=== PATIENT | male | born 1930 | race Caucasian/White ===

== ENCOUNTER 2021-06-24 10:56 | Inpatient (IN) | payer MEDICARE, OTHER ==
[2021-06-24] MEDS ORDERED: Azithromycin 500 MG VIAL ONE (11:38)
[2021-06-24] MEDS ORDERED: cefTRIAXone\\ROCEPHIN 2 GM VIAL ONE (11:38)
[2021-06-24 12:07] LABS: #Monocytes 0.8 10x3/uL (0.0-1.1); #Neutrophils 11.7 10x3/uL (1.5-8.4); %Basophils 0.2 % (0.0-2.0); %Eosinophils 0.2 % (0.0-6.0); %Lymphocytes 8.1 % (18.0-47.0); %Monocytes 5.5 % (0.0-10.0); %Neutrophils 85.1 % (40.0-75.0); Hemoglobin 12.1 g/dL (13.5-17.5); Mean Corpuscular HGB CONC 32.9 g/dL (32.0-36.0); Mean Corpuscular Hemoglobin 33.5 pg (27.0-33.0); Mean Corpuscular Volume 101.9 fl (81.2-95.1); Mean Platelet Volume 8.5 fl (7.4-10.4); Platelet Count 151 10x3/uL (150-450); RBC Distribution Width 13.6 % (11.5-14.5); Red Blood Cell (RBC) Count 3.61 10x6/uL (4.32-5.72); White Blood Cell (WBC) Count 13.7 10x3/uL (3.5-10.5)
[2021-06-24 12:17] LABS: ALT (SGPT) 44 U/L (8-55); AST (SGOT) 30 U/L (5-34); Albumin 3.8 g/dL (3.4-4.8); Alkaline Phosphatase 62 U/L (40-110); Anion Gap 14 mmol/L (10-20); BUN (Urea Nitrogen) 33 mg/dL (8.4-25.7); Bilirubin, Total 0.7 mg/dL (0.2-1.2); Calc. Creatinine Clearance 0 mL/min (70-130); Calcium 9.7 mg/dL (7.8-10.44); Carbon Dioxide 24 mmol/L (23-31); Chloride 104 mmol/L (98-107); Globulin 3.1 g/dL (2.4-3.5); Glucose 185 mg/dL (83-110); Potassium 3.8 mmol/L (3.5-5.1); Protein, Total 6.9 g/dL (5.8-8.1); Sodium 138 mmol/L (136-145)
[2021-06-24 13:44] LABS: SARS-CoV-2 NAA Rapid Test DETECTED (NotDetected)
[2021-06-24 15:58] LABS: Bilirubin Neg (Negative); Blood, Urine 25 (Negative); Clarity Clear (Clear); Glucose, Urine (Dipstick) Normal (Negative); Ketone, Urine Negative (Negative); Leukocyte Negative (Negative); Nitrite Negative (Negative); Protein, Urine (Dipstick) 30 mg/dl (Neg-Trace); Urobilinogen Normal mg/dL (Less than 2)
[2021-06-24 16:24] LABS: RBC/HPF 0-3 HPF (0-3)
[2021-06-24 16:25] LABS: Bacteria/HPF 2+ HPF (None Seen); Mucous/LPF 1+ LPF (<2+); WBC/HPF 0-3 HPF (0-3)
[2021-06-24] MEDS ORDERED: Ondansetron ODT 4 MG TAB PO PRN (16:43)
[2021-06-24] MEDS ORDERED: Acetaminophen 650 MG Suppository PR PRN (16:43)
[2021-06-24] MEDS ORDERED: Ondansetron PF 4 MG/2 ML Vial IVP PRN (16:43)
[2021-06-24] MEDS ORDERED: Ipratropium Oral Inhaler INH PRN (16:46)
[2021-06-24] MEDS ORDERED: Ventolin HFA Inhaler 60 PUFF INHALER ONE (16:59)
[2021-06-24] MEDS ORDERED: REMDESIVIR 200 MG in Sodium Chloride 0.9% 250 ML 210 ML IV SCH ×2 (17:00→21:00)
[2021-06-24] MEDS ORDERED: DorzolamidE/Timolol 2%/0.5% Ophth Soln 10 ml Bottle EA EYE SCH (17:30)
[2021-06-24] MEDS ORDERED: Azithromycin 500 MG in Sodium Chloride 0.9% 250 ML 250 ML IVPB SCH (19:45)
[2021-06-24] MEDS ORDERED: Communication Order-Pharmacy FS PRN (20:01)
[2021-06-24] MEDS: Apixaban 5 MG TAB PO SCH (20:58)
[2021-06-24] MEDS: Melatonin 3 MG TAB PO SCH (20:59)
[2021-06-24] MEDS: Cefepime 2 GM in Sodium Chloride 0.9% 100 ML IVPB SCH (20:59)
[2021-06-24] MEDS: Dexamethasone 20 MG/5 ML VIAL SLOW IVP SCH (21:01)
[2021-06-24] MEDS: Sodium Chloride 0.9% 1,000 ML IV SCH (21:01)
[2021-06-24] MEDS ORDERED: REMDESIVIR 100 MG in Sodium Chloride 0.9% 250 ML 230 ML IV SCH (22:00)
[2021-06-24] MEDS ORDERED: FLU VACC QS2021-22(65YR UP)/PF 240 MCG/0.7 ML SYRINGE IM ONE (23:30)
[2021-06-24] MEDS ORDERED: VANCOMYCIN 2 GRAM/400 ML BAG 2 GM in Premix Bag 1 BAG IVPB SCH (23:59)
[2021-06-25] MEDS ORDERED: Sodium Chloride 0.65% Nasal 44 ML BOT EA NARE PRN (01:01)
[2021-06-25] MEDS: Ventolin HFA Inhaler 60 PUFF INHALER INH SCH ×7 (01:27→23:52)
[2021-06-25] MEDS: Acetaminophen 325 MG TAB PO PRN (02:10)
[2021-06-25 05:19] LABS: Anion Gap 12 mmol/L (10-20); BUN (Urea Nitrogen) 29 mg/dL (8.4-25.7); CRP (Inflammatory) 22.27 mg/dL (= or < 0.5); Calc. Creatinine Clearance 81 mL/min (70-130); Calcium 8.7 mg/dL (7.8-10.44); Carbon Dioxide 24 mmol/L (23-31); Chloride 109 mmol/L (98-107); Glucose 170 mg/dL (83-110); Sodium 141 mmol/L (136-145)
[2021-06-25 05:44] LABS: #Monocytes 0.3 10x3/uL (0.0-1.1); #Neutrophils 9.8 10x3/uL (1.5-8.4); %Basophils 0.2 % (0.0-2.0); %Lymphocytes 7.1 % (18.0-47.0); %Monocytes 2.4 % (0.0-10.0); %Neutrophils 89.4 % (40.0-75.0); Hemoglobin 10.7 g/dL (13.5-17.5); Mean Corpuscular HGB CONC 31.8 g/dL (32.0-36.0); Mean Corpuscular Hemoglobin 32.9 pg (27.0-33.0); Mean Corpuscular Volume 103.4 fl (81.2-95.1); Mean Platelet Volume 8.7 fl (7.4-10.4); Platelet Count 140 10x3/uL (150-450); RBC Distribution Width 13.2 % (11.5-14.5); Red Blood Cell (RBC) Count 3.25 10x6/uL (4.32-5.72); White Blood Cell (WBC) Count 10.9 10x3/uL (3.5-10.5)
[2021-06-25] MEDS ORDERED: Dexamethasone 10 MG/ML VIAL SLOW IVP SCH (09:00)
[2021-06-25] MEDS ORDERED: Cefepime 2 GM VIAL ONE ×2 (09:18→21:16)
[2021-06-25] MEDS: Sodium Chloride 0.9% 1,000 ML IV SCH ×2 (09:46→21:22)
[2021-06-25] MEDS: Apixaban 5 MG TAB PO SCH ×2 (09:51→21:22)
[2021-06-25] MEDS: Ascorbic Acid 500 mg Chewable Tablet PO SCH (09:51)
[2021-06-25] MEDS: Dexamethasone 20 MG/5 ML VIAL SLOW IVP SCH ×2 (09:52→21:23)
[2021-06-25] MEDS: Dorzolamide HCl 2% Ophth Soln 10 ml Bottle EA EYE SCH (09:55)
[2021-06-25] MEDS: Cefepime 2 GM in Sodium Chloride 0.9% 100 ML IVPB SCH ×2 (09:56→21:17)
[2021-06-25] MEDS: Timolol 0.5% Ophth Soln 5 ml Bottle EA EYE SCH (09:58)
[2021-06-25] MEDS: Zinc Sulfate 220 MG CAP PO SCH (10:01)
[2021-06-25] MEDS ORDERED: Sodium Chloride 0.9% 250 ML 250 ML ONE ×2 (12:33)
[2021-06-25] MEDS: Azithromycin 500 MG in Sodium Chloride 0.9% 250 ML 250 ML IVPB SCH (12:55)
[2021-06-25 20:18] LABS: Legionella Urinary Ag Negative (Negative); Strep pneumo Urine Ag NEGATIVE (NEGATIVE)
[2021-06-25] MEDS: REMDESIVIR 100 MG in Sodium Chloride 0.9% 250 ML 230 ML IV SCH (21:17)
[2021-06-25] MEDS: Melatonin 3 MG TAB PO SCH (21:18)
[2021-06-25] MEDS ORDERED: Vancomycin 1.5 GRAM/300 ML BAG 1.5 GM in Premix Bag 1 BAG IVPB SCH (23:59)
[2021-06-26] MEDS: Ventolin HFA Inhaler 60 PUFF INHALER INH SCH ×5 (04:00→19:35)
[2021-06-26] MEDS: Diltiazem 125 MG in Sodium Chloride 0.9% 100 ML IVPB SCH ×2 (05:27→17:42)
[2021-06-26 06:45] LABS: Anion Gap 12 mmol/L (10-20); BUN (Urea Nitrogen) 36 mg/dL (8.4-25.7); Calc. Creatinine Clearance 85 mL/min (70-130); Calcium 8.7 mg/dL (7.8-10.44); Carbon Dioxide 20 mmol/L (23-31); Chloride 114 mmol/L (98-107); Glucose 185 mg/dL (83-110); Potassium 4.1 mmol/L (3.5-5.1); Sodium 142 mmol/L (136-145)
[2021-06-26 06:51] LABS: #Monocytes 0.3 10x3/uL (0.0-1.1); #Neutrophils 7.9 10x3/uL (1.5-8.4); %Basophils 0.2 % (0.0-2.0); %Lymphocytes 9.6 % (18.0-47.0); %Monocytes 3.6 % (0.0-10.0); %Neutrophils 84.8 % (40.0-75.0); Mean Corpuscular HGB CONC 31.8 g/dL (32.0-36.0); Mean Corpuscular Hemoglobin 32.8 pg (27.0-33.0); Mean Corpuscular Volume 103.3 fl (81.2-95.1); Mean Platelet Volume 8.8 fl (7.4-10.4); Platelet Count 178 10x3/uL (150-450); RBC Distribution Width 13.3 % (11.5-14.5); Red Blood Cell (RBC) Count 3.35 10x6/uL (4.32-5.72); White Blood Cell (WBC) Count 9.3 10x3/uL (3.5-10.5)
[2021-06-26] MEDS: Cefepime 2 GM in Sodium Chloride 0.9% 100 ML IVPB SCH ×2 (08:07→21:09)
[2021-06-26] MEDS: Dexamethasone 20 MG/5 ML VIAL SLOW IVP SCH ×2 (08:08→21:09)
[2021-06-26] MEDS: Ascorbic Acid 500 mg Chewable Tablet PO SCH (08:09)
[2021-06-26] MEDS: Apixaban 5 MG TAB PO SCH ×2 (08:09→21:07)
[2021-06-26] MEDS: Zinc Sulfate 220 MG CAP PO SCH (08:09)
[2021-06-26] MEDS: Timolol 0.5% Ophth Soln 5 ml Bottle EA EYE SCH (08:12)
[2021-06-26] MEDS: Sodium Chloride 0.9% 1,000 ML IV SCH (09:12)
[2021-06-26] MEDS: Dorzolamide HCl 2% Ophth Soln 10 ml Bottle EA EYE SCH (09:12)
[2021-06-26] MEDS ORDERED: Sodium Chloride 0.9% 250 ML 250 ML ONE (09:17)
[2021-06-26] MEDS: Azithromycin 500 MG in Sodium Chloride 0.9% 250 ML 250 ML IVPB SCH (09:35)
[2021-06-26] MEDS ORDERED: Metoprolol Tartrate 50 MG TAB PO SCH ×2 (10:30→14:15)
[2021-06-26 10:52] LABS: Magnesium 2.2 mg/dL (1.6-2.6)
[2021-06-26 12:26] LABS: Actual Bicarbonate (HCO3a) 21.1 mEq/L (22-28); Base Excess (BEa) -4.8 mEq/L (-2.0 to +3.0); Calcium, Ionized (arterial) 1.26 mmol/L (1.12-1.30); Carboxyhemoglobin (COHb) 0.3 gm% (0.0-3.0); Hemoglobin (Hb) 12.3 g/dL (14.0-18.0); O2 Tension (PaO2), arterial 66.9 mmHg (> 60.0); Potassium - ABG Lab 4.3 mmol/L (3.70-5.30); Puncture Site LRA; pH, Arterial 7.32 (7.35-7.45)
[2021-06-26] MEDS: Metoprolol Tartrate 50 MG TAB PO SCH (21:08)
[2021-06-26] MEDS: BARICITINIB 2 MG TAB PO SCH (21:08)
[2021-06-26] MEDS: Melatonin 3 MG TAB PO SCH (21:20)
[2021-06-26] MEDS: REMDESIVIR 100 MG in Sodium Chloride 0.9% 250 ML 230 ML IV SCH (22:30)
[2021-06-26 23:25] LABS: Vancomycin, Trough 12.4 ug/mL
[2021-06-26] MEDS ORDERED: Vancomycin 1.5 GRAM/300 ML BAG 1.5 GM in Premix Bag 1 BAG IVPB SCH (23:59)
[2021-06-27] MEDS: Ventolin HFA Inhaler 60 PUFF INHALER INH SCH ×7 (00:27→23:39)
[2021-06-27 03:42] LABS: #Monocytes 0.6 10x3/uL (0.0-1.1); #Neutrophils 11.1 10x3/uL (1.5-8.4); %Basophils 0.2 % (0.0-2.0); %Lymphocytes 10.8 % (18.0-47.0); %Monocytes 4.8 % (0.0-10.0); %Neutrophils 82.7 % (40.0-75.0); Hemoglobin 11.5 g/dL (13.5-17.5); Mean Corpuscular Hemoglobin 33.4 pg (27.0-33.0); Mean Corpuscular Volume 104.4 fl (81.2-95.1); Mean Platelet Volume 8.6 fl (7.4-10.4); Platelet Count 247 10x3/uL (150-450); RBC Distribution Width 13.8 % (11.5-14.5); Red Blood Cell (RBC) Count 3.44 10x6/uL (4.32-5.72); White Blood Cell (WBC) Count 13.4 10x3/uL (3.5-10.5)
[2021-06-27 03:53] LABS: Anion Gap 12 mmol/L (10-20); BUN (Urea Nitrogen) 53 mg/dL (8.4-25.7); CRP (Inflammatory) 7.12 mg/dL (= or < 0.5); Calc. Creatinine Clearance 62 mL/min (70-130); Calcium 8.8 mg/dL (7.8-10.44); Carbon Dioxide 21 mmol/L (23-31); Chloride 115 mmol/L (98-107); Glucose 187 mg/dL (83-110); Potassium 4.7 mmol/L (3.5-5.1); Sodium 143 mmol/L (136-145)
[2021-06-27] MEDS: Dorzolamide HCl 2% Ophth Soln 10 ml Bottle EA EYE SCH (08:45)
[2021-06-27] MEDS: Timolol 0.5% Ophth Soln 5 ml Bottle EA EYE SCH (08:45)
[2021-06-27] MEDS ORDERED: Sodium Chloride 0.45% 1,000 ML IV SCH (08:45)
[2021-06-27] MEDS: Dexamethasone 20 MG/5 ML VIAL SLOW IVP SCH ×2 (08:46→21:14)
[2021-06-27] MEDS: Cefepime 2 GM in Sodium Chloride 0.9% 100 ML IVPB SCH (08:46)
[2021-06-27] MEDS ORDERED: Enoxaparin Sodium 40 MG/0.4 ML SYRINGE SC SCH (10:30)
[2021-06-27] MEDS ORDERED: Lactated Ringer's 500 ML IV SCH (10:30)
[2021-06-27] MEDS: Ascorbic Acid 500 mg Chewable Tablet PO SCH (10:47)
[2021-06-27] MEDS: Metoprolol Tartrate 50 MG TAB PO SCH ×2 (10:48→21:16)
[2021-06-27] MEDS: Zinc Sulfate 220 MG CAP PO SCH (10:48)
[2021-06-27] MEDS ORDERED: Lactated Ringer's 1,000 ML IV SCH (11:00)
[2021-06-27 11:23] LABS: Actual Bicarbonate (HCO3a) 20.8 mEq/L (22-28); Base Excess (BEa) -5.7 mEq/L (-2.0 to +3.0); CO2 Tension 44.8 mmHg (35.0-45.0); Calcium, Ionized (arterial) 1.28 mmol/L (1.12-1.30); Carboxyhemoglobin (COHb) 0.2 gm% (0.0-3.0); Hemoglobin (Hb) 11.9 g/dL (14.0-18.0); O2 Tension (PaO2), arterial 71.6 mmHg (> 60.0); Potassium - ABG Lab 4.5 mmol/L (3.70-5.30); Puncture Site LRA; pH, Arterial 7.29 (7.35-7.45)
[2021-06-27] MEDS: Lactated Ringer's 1,000 ML IV SCH ×2 (11:23→15:27)
[2021-06-27] MEDS: Azithromycin 500 MG in Sodium Chloride 0.9% 250 ML 250 ML IVPB SCH (12:05)
[2021-06-27] MEDS ORDERED: cefTRIAXone\\ROCEPHIN 2 GM in Sodium Chloride 0.9% 100 ML IVPB SCH (21:00)
[2021-06-27] MEDS: BARICITINIB 2 MG TAB PO SCH (21:16)
[2021-06-27] MEDS: Melatonin 3 MG TAB PO SCH (21:16)
[2021-06-27] MEDS ORDERED: VANCOMYCIN 1.75 GM/350 ML BAG 1.75 GM in Premix Bag 1 BAG IVPB SCH (23:59)
[2021-06-28] MEDS: Lactated Ringer's 1,000 ML IV SCH (01:09)
[2021-06-28] MEDS: Ventolin HFA Inhaler 60 PUFF INHALER INH SCH ×6 (02:42→23:40)
[2021-06-28 05:10] LABS: #Monocytes 0.5 10x3/uL (0.0-1.1); #Neutrophils 5.8 10x3/uL (1.5-8.4); %Basophils 0.4 % (0.0-2.0); %Lymphocytes 18.4 % (18.0-47.0); %Monocytes 5.8 % (0.0-10.0); %Neutrophils 72.7 % (40.0-75.0); Hemoglobin 11.8 g/dL (13.5-17.5); Mean Corpuscular Hemoglobin 33.6 pg (27.0-33.0); Mean Platelet Volume 8.5 fl (7.4-10.4); Platelet Count 251 10x3/uL (150-450); RBC Distribution Width 13.6 % (11.5-14.5); Red Blood Cell (RBC) Count 3.51 10x6/uL (4.32-5.72); White Blood Cell (WBC) Count 7.9 10x3/uL (3.5-10.5)
[2021-06-28 05:20] LABS: Anion Gap 15 mmol/L (10-20); BUN (Urea Nitrogen) 70 mg/dL (8.4-25.7); CRP (Inflammatory) 4.23 mg/dL (= or < 0.5); Calc. Creatinine Clearance 45 mL/min (70-130); Calcium 8.8 mg/dL (7.8-10.44); Carbon Dioxide 20 mmol/L (23-31); Chloride 114 mmol/L (98-107); Glucose 181 mg/dL (83-110); Potassium 4.6 mmol/L (3.5-5.1); Sodium 144 mmol/L (136-145)
[2021-06-28 05:23] LABS: ALT (SGPT) 249 U/L (8-55); AST (SGOT) 94 U/L (5-34); Albumin 3.4 g/dL (3.4-4.8); Alkaline Phosphatase 55 U/L (40-110); Bilirubin, Direct 0.3 mg/dL (0.1-0.3); Bilirubin, Total 0.4 mg/dL (0.2-1.2); Protein, Total 6.1 g/dL (5.8-8.1)
[2021-06-28] MEDS ORDERED: Furosemide 40 MG/4 ML VIAL SLOW IVP SCH (08:30)
[2021-06-28] MEDS: Dexmedetomidine In 0.9 % NaCl 100 ML IVPB SCH (08:39)
[2021-06-28] MEDS ORDERED: Enoxaparin Sodium 40 MG/0.4 ML SYRINGE SC SCH (09:00)
[2021-06-28] MEDS: Pantoprazole 40 MG VIAL IVP SCH (09:35)
[2021-06-28] MEDS: Dexamethasone 20 MG/5 ML VIAL SLOW IVP SCH ×2 (09:35→20:02)
[2021-06-28] MEDS: Zinc Sulfate 220 MG CAP PO SCH (09:36)
[2021-06-28] MEDS: Metoprolol Tartrate 50 MG TAB PO SCH ×3 (09:36→20:03)
[2021-06-28] MEDS: Ascorbic Acid 500 mg Chewable Tablet PO SCH (09:36)
[2021-06-28] MEDS: Timolol 0.5% Ophth Soln 5 ml Bottle EA EYE SCH (12:01)
[2021-06-28] MEDS: Dorzolamide HCl 2% Ophth Soln 10 ml Bottle EA EYE SCH (12:03)
[2021-06-28] MEDS: Melatonin 3 MG TAB PO SCH (20:02)
[2021-06-28] MEDS: Enoxaparin Sodium 120 MG/0.8 ML SYRINGE SC SCH (20:03)
[2021-06-28] MEDS: BARICITINIB 2 MG TAB PO SCH (20:03)
[2021-06-28 21:58] LABS: Bilirubin Neg (Negative); Blood, Urine 250 (Negative); Clarity Clear (Clear); Glucose, Urine (Dipstick) Normal (Negative); Ketone, Urine Negative (Negative); Leukocyte 25 (Negative); Nitrite Negative (Negative); Protein, Urine (Dipstick) 30 mg/dl (Neg-Trace); Specific Gravity, Urine 1.015 (1.002-1.036); Urobilinogen Normal mg/dL (Less than 2)
[2021-06-28 22:06] LABS: WBC/HPF 0-3 HPF (0-3)
[2021-06-28 22:07] LABS: Bacteria/HPF Rare-Few HPF (None Seen); Mucous/LPF 1+ LPF (<2+); Squamous Epithelial 0-3 HPF (0-3)
[2021-06-29 04:33] LABS: #Monocytes 0.3 10x3/uL (0.0-1.1); #Neutrophils 4.7 10x3/uL (1.5-8.4); %Basophils 0.3 % (0.0-2.0); %Lymphocytes 19.1 % (18.0-47.0); %Monocytes 4.8 % (0.0-10.0); %Neutrophils 73.1 % (40.0-75.0); Hemoglobin 11.3 g/dL (13.5-17.5); Mean Corpuscular HGB CONC 32.2 g/dL (32.0-36.0); Mean Corpuscular Hemoglobin 33.4 pg (27.0-33.0); Mean Corpuscular Volume 103.8 fl (81.2-95.1); Mean Platelet Volume 8.4 fl (7.4-10.4); Platelet Count 226 10x3/uL (150-450); RBC Distribution Width 13.4 % (11.5-14.5); Red Blood Cell (RBC) Count 3.38 10x6/uL (4.32-5.72); White Blood Cell (WBC) Count 6.4 10x3/uL (3.5-10.5)
[2021-06-29 04:43] LABS: ALT (SGPT) 194 U/L (8-55); AST (SGOT) 50 U/L (5-34); Albumin 3.2 g/dL (3.4-4.8); Alkaline Phosphatase 50 U/L (40-110); Anion Gap 14 mmol/L (10-20); BUN (Urea Nitrogen) 72 mg/dL (8.4-25.7); Bilirubin, Direct 0.2 mg/dL (0.1-0.3); Bilirubin, Total 0.4 mg/dL (0.2-1.2); Calc. Creatinine Clearance 55 mL/min (70-130); Calcium 8.8 mg/dL (7.8-10.44); Carbon Dioxide 21 mmol/L (23-31); Chloride 115 mmol/L (98-107); Globulin 2.5 g/dL (2.4-3.5); Glucose 165 mg/dL (83-110); Magnesium 2.7 mg/dL (1.6-2.6); Phosphorus 4.4 mg/dL (2.3-4.7); Potassium 4.9 mmol/L (3.5-5.1); Protein, Total 5.7 g/dL (5.8-8.1); Sodium 145 mmol/L (136-145)
[2021-06-29] MEDS: Ventolin HFA Inhaler 60 PUFF INHALER INH SCH ×6 (04:46→23:48)
[2021-06-29] MEDS: Dorzolamide HCl 2% Ophth Soln 10 ml Bottle EA EYE SCH (08:38)
[2021-06-29] MEDS: Ascorbic Acid 500 mg Chewable Tablet PO SCH (08:38)
[2021-06-29] MEDS: Zinc Sulfate 220 MG CAP PO SCH (08:38)
[2021-06-29] MEDS: Dexamethasone 20 MG/5 ML VIAL SLOW IVP SCH ×2 (08:38→20:03)
[2021-06-29] MEDS: Timolol 0.5% Ophth Soln 5 ml Bottle EA EYE SCH (08:38)
[2021-06-29] MEDS: Enoxaparin Sodium 120 MG/0.8 ML SYRINGE SC SCH ×2 (08:39→20:04)
[2021-06-29] MEDS: Pantoprazole 40 MG VIAL IVP SCH (08:40)
[2021-06-29] MEDS: Metoprolol Tartrate 50 MG TAB PO SCH ×2 (08:40→20:03)
[2021-06-29] MEDS: Dexmedetomidine In 0.9 % NaCl 100 ML IVPB SCH (08:43)
[2021-06-29] MEDS: BARICITINIB 2 MG TAB PO SCH (20:03)
[2021-06-29] MEDS: Enoxaparin Sodium 120 MG/0.8 ML SYRINGE SC ONE ×2 (20:03→20:06)
[2021-06-29] MEDS: Melatonin 3 MG TAB PO SCH (20:03)
[2021-06-29] MEDS ORDERED: Albuterol Sulfate 2.5 mg/3 ml Neb NEB SCH (22:30)
[2021-06-30] MEDS: Ventolin HFA Inhaler 60 PUFF INHALER INH SCH ×6 (03:59→23:57)
[2021-06-30 04:02] LABS: ALT (SGPT) 153 U/L (8-55); AST (SGOT) 28 U/L (5-34); Albumin 3.3 g/dL (3.4-4.8); Alkaline Phosphatase 51 U/L (40-110); Bilirubin, Direct 0.2 mg/dL (0.1-0.3); Bilirubin, Total 0.5 mg/dL (0.2-1.2); Protein, Total 5.7 g/dL (5.8-8.1)
[2021-06-30] MEDS: Dexamethasone 20 MG/5 ML VIAL SLOW IVP SCH ×2 (08:42→20:31)
[2021-06-30] MEDS: Enoxaparin Sodium 120 MG/0.8 ML SYRINGE SC SCH ×3 (08:42→22:47)
[2021-06-30] MEDS: Timolol 0.5% Ophth Soln 5 ml Bottle EA EYE SCH (08:43)
[2021-06-30] MEDS: Zinc Sulfate 220 MG CAP PO SCH (08:43)
[2021-06-30] MEDS: Ascorbic Acid 500 mg Chewable Tablet PO SCH (08:43)
[2021-06-30] MEDS: Metoprolol Tartrate 50 MG TAB PO SCH ×2 (08:43→20:31)
[2021-06-30] MEDS: Dorzolamide HCl 2% Ophth Soln 10 ml Bottle EA EYE SCH (08:44)
[2021-06-30 09:27] LABS: Anion Gap 16 mmol/L (10-20); BUN (Urea Nitrogen) 66 mg/dL (8.4-25.7); Calc. Creatinine Clearance 75 mL/min (70-130); Calcium 8.3 mg/dL (7.8-10.44); Carbon Dioxide 18 mmol/L (23-31); Chloride 115 mmol/L (98-107); Glucose 179 mg/dL (83-110); Potassium 5.2 mmol/L (3.5-5.1); Sodium 144 mmol/L (136-145)
[2021-06-30] MEDS ORDERED: Lisinopril 10 MG TAB PO SCH (18:30)
[2021-06-30] MEDS: BARICITINIB 2 MG TAB PO SCH (20:30)
[2021-06-30] MEDS: Melatonin 3 MG TAB PO SCH (20:31)
[2021-06-30] MEDS ORDERED: Polyethylene Glycol 3350 17 GM Packet PO SCH (21:15)
[2021-06-30] MEDS: Senokot S 8.6-50 MG TAB PO SCH (22:27)
[2021-07-01] MEDS: Enoxaparin Sodium 120 MG/0.8 ML SYRINGE SC SCH ×4 (00:08→20:16)
[2021-07-01] MEDS: Ventolin HFA Inhaler 60 PUFF INHALER INH SCH ×6 (02:38→22:39)
[2021-07-01 05:56] LABS: #Monocytes 0.3 10x3/uL (0.0-1.1); #Neutrophils 5.1 10x3/uL (1.5-8.4); %Basophils 0.4 % (0.0-2.0); %Lymphocytes 19.2 % (18.0-47.0); %Monocytes 4.3 % (0.0-10.0); %Neutrophils 73.5 % (40.0-75.0); Hemoglobin 12.2 g/dL (13.5-17.5); Mean Corpuscular HGB CONC 33.2 g/dL (32.0-36.0); Mean Corpuscular Hemoglobin 33.1 pg (27.0-33.0); Mean Corpuscular Volume 99.5 fl (81.2-95.1); Mean Platelet Volume 8.7 fl (7.4-10.4); Platelet Count 249 10x3/uL (150-450); RBC Distribution Width 13.2 % (11.5-14.5); Red Blood Cell (RBC) Count 3.69 10x6/uL (4.32-5.72)
[2021-07-01 06:09] LABS: Anion Gap 13 mmol/L (10-20); BUN (Urea Nitrogen) 61 mg/dL (8.4-25.7); CRP (Inflammatory) 1.02 mg/dL (= or < 0.5); Calc. Creatinine Clearance 71 mL/min (70-130); Calcium 8.7 mg/dL (7.8-10.44); Carbon Dioxide 24 mmol/L (23-31); Chloride 113 mmol/L (98-107); Glucose 167 mg/dL (83-110); Magnesium 2.6 mg/dL (1.6-2.6); Phosphorus 3.6 mg/dL (2.3-4.7); Potassium 4.9 mmol/L (3.5-5.1); Sodium 145 mmol/L (136-145)
[2021-07-01] MEDS: Zinc Sulfate 220 MG CAP PO SCH (08:47)
[2021-07-01] MEDS: Lisinopril 10 MG TAB PO SCH (08:47)
[2021-07-01] MEDS: Dexamethasone 20 MG/5 ML VIAL SLOW IVP SCH ×2 (08:47→20:15)
[2021-07-01] MEDS: Dorzolamide HCl 2% Ophth Soln 10 ml Bottle EA EYE SCH (08:47)
[2021-07-01] MEDS: Timolol 0.5% Ophth Soln 5 ml Bottle EA EYE SCH (08:48)
[2021-07-01] MEDS: Polyethylene Glycol 3350 17 GM Packet PO SCH (08:48)
[2021-07-01] MEDS: Ascorbic Acid 500 mg Chewable Tablet PO SCH (08:48)
[2021-07-01] MEDS: Metoprolol Tartrate 50 MG TAB PO SCH ×2 (08:48→20:15)
[2021-07-01] MEDS: Senokot S 8.6-50 MG TAB PO SCH ×2 (09:24→20:15)
[2021-07-01] MEDS: Melatonin 3 MG TAB PO SCH (20:15)
[2021-07-01] MEDS: BARICITINIB 2 MG TAB PO SCH (20:15)
[2021-07-02] MEDS: Ventolin HFA Inhaler 60 PUFF INHALER INH SCH ×5 (03:21→20:57)
[2021-07-02 05:46] LABS: #Monocytes 0.3 10x3/uL (0.0-1.1); #Neutrophils 6.8 10x3/uL (1.5-8.4); %Basophils 0.4 % (0.0-2.0); %Lymphocytes 14.4 % (18.0-47.0); %Monocytes 3.4 % (0.0-10.0); %Neutrophils 79.3 % (40.0-75.0); Anion Gap 11 mmol/L (10-20); BUN (Urea Nitrogen) 54 mg/dL (8.4-25.7); Calc. Creatinine Clearance 85 mL/min (70-130); Calcium 8.5 mg/dL (7.8-10.44); Carbon Dioxide 26 mmol/L (23-31); Chloride 112 mmol/L (98-107); Glucose 164 mg/dL (83-110); Magnesium 2.5 mg/dL (1.6-2.6); Mean Corpuscular HGB CONC 33.6 g/dL (32.0-36.0); Mean Corpuscular Hemoglobin 33.4 pg (27.0-33.0); Mean Corpuscular Volume 99.4 fl (81.2-95.1); Mean Platelet Volume 8.9 fl (7.4-10.4); Phosphorus 2.5 mg/dL (2.3-4.7); Platelet Count 220 10x3/uL (150-450); Potassium 4.6 mmol/L (3.5-5.1); RBC Distribution Width 13.2 % (11.5-14.5); Red Blood Cell (RBC) Count 3.59 10x6/uL (4.32-5.72); Sodium 144 mmol/L (136-145); White Blood Cell (WBC) Count 8.5 10x3/uL (3.5-10.5)
[2021-07-02 05:59] VITALS: BMI 36.6
[2021-07-02] MEDS: Milk Of Magnesia 30 ML UDCUP PO SCH (08:31)
[2021-07-02] MEDS: Polyethylene Glycol 3350 17 GM Packet PO SCH (08:31)
[2021-07-02] MEDS: Zinc Sulfate 220 MG CAP PO SCH (08:32)
[2021-07-02] MEDS: Ascorbic Acid 500 mg Chewable Tablet PO SCH (08:32)
[2021-07-02] MEDS: Dexamethasone 20 MG/5 ML VIAL SLOW IVP SCH ×2 (08:32→20:37)
[2021-07-02] MEDS: Senokot S 8.6-50 MG TAB PO SCH ×3 (08:32→21:34)
[2021-07-02] MEDS: Metoprolol Tartrate 50 MG TAB PO SCH ×2 (08:32→20:39)
[2021-07-02] MEDS: Lisinopril 10 MG TAB PO SCH (08:32)
[2021-07-02] MEDS: Enoxaparin Sodium 120 MG/0.8 ML SYRINGE SC SCH ×2 (08:32→20:39)
[2021-07-02] MEDS: Dorzolamide HCl 2% Ophth Soln 10 ml Bottle EA EYE SCH (08:39)
[2021-07-02] MEDS: Timolol 0.5% Ophth Soln 5 ml Bottle EA EYE SCH (08:40)
[2021-07-02] MEDS: hydrALAZINE 20 MG/ML VIAL SLOW IVP PRN (20:38)
[2021-07-02] MEDS: Melatonin 3 MG TAB PO SCH (20:39)
[2021-07-02] MEDS: BARICITINIB 2 MG TAB PO SCH (20:47)
[2021-07-03] MEDS: hydrALAZINE 20 MG/ML VIAL SLOW IVP PRN ×2 (00:05→11:14)
[2021-07-03] MEDS: Acetaminophen 325 MG TAB PO PRN ×3 (00:14→19:02)
[2021-07-03] MEDS: Ventolin HFA Inhaler 60 PUFF INHALER INH SCH ×6 (04:06→20:35)
[2021-07-03 05:29] LABS: #Monocytes 0.4 10x3/uL (0.0-1.1); #Neutrophils 8.6 10x3/uL (1.5-8.4); %Basophils 0.2 % (0.0-2.0); %Lymphocytes 16.8 % (18.0-47.0); %Monocytes 3.8 % (0.0-10.0); %Neutrophils 77.6 % (40.0-75.0); Hemoglobin 12.7 g/dL (13.5-17.5); Mean Corpuscular HGB CONC 33.1 g/dL (32.0-36.0); Mean Corpuscular Hemoglobin 33.2 pg (27.0-33.0); Mean Corpuscular Volume 100.5 fl (81.2-95.1); Mean Platelet Volume 9.1 fl (7.4-10.4); Platelet Count 252 10x3/uL (150-450); RBC Distribution Width 13.6 % (11.5-14.5); Red Blood Cell (RBC) Count 3.82 10x6/uL (4.32-5.72); White Blood Cell (WBC) Count 11.1 10x3/uL (3.5-10.5)
[2021-07-03 05:36] LABS: ALT (SGPT) 126 U/L (8-55); AST (SGOT) 37 U/L (5-34); Albumin 3.3 g/dL (3.4-4.8); Alkaline Phosphatase 43 U/L (40-110); Bilirubin, Direct 0.4 mg/dL (0.1-0.3); Bilirubin, Total 0.8 mg/dL (0.2-1.2); Protein, Total 5.6 g/dL (5.8-8.1)
[2021-07-03 05:38] LABS: Anion Gap 10 mmol/L (10-20); BUN (Urea Nitrogen) 47 mg/dL (8.4-25.7); Calc. Creatinine Clearance 88 mL/min (70-130); Calcium 8.6 mg/dL (7.8-10.44); Carbon Dioxide 30 mmol/L (23-31); Chloride 109 mmol/L (98-107); Glucose 157 mg/dL (83-110); Magnesium 2.6 mg/dL (1.6-2.6); Phosphorus 2.8 mg/dL (2.3-4.7); Sodium 144 mmol/L (136-145)
[2021-07-03] MEDS ORDERED: Milk Of Magnesia 30 ML UDCUP ONE (07:56)
[2021-07-03] MEDS ORDERED: Lisinopril 20 MG TAB PO SCH (09:00)
[2021-07-03] MEDS ORDERED: Hydrochlorothiazide 25 MG TAB PO SCH (09:00)
[2021-07-03] MEDS: Ascorbic Acid 500 mg Chewable Tablet PO SCH (09:23)
[2021-07-03] MEDS: Zinc Sulfate 220 MG CAP PO SCH (09:23)
[2021-07-03] MEDS: Enoxaparin Sodium 120 MG/0.8 ML SYRINGE SC SCH (09:23)
[2021-07-03] MEDS: Dexamethasone 20 MG/5 ML VIAL SLOW IVP SCH (09:23)
[2021-07-03] MEDS: Metoprolol Tartrate 50 MG TAB PO SCH (09:23)
[2021-07-03] MEDS: Timolol 0.5% Ophth Soln 5 ml Bottle EA EYE SCH (09:28)
[2021-07-03] MEDS: Dorzolamide HCl 2% Ophth Soln 10 ml Bottle EA EYE SCH (09:28)
[2021-07-03] MEDS: Milk Of Magnesia 30 ML UDCUP PO SCH (09:29)
[2021-07-03] MEDS: Senokot S 8.6-50 MG TAB PO SCH (09:29)
[2021-07-03] MEDS: Polyethylene Glycol 3350 17 GM Packet PO SCH (09:29)
[2021-07-03] MEDS ORDERED: traMADol HCl 50 MG TAB PO PRN (15:17)
[2021-07-03] MEDS ORDERED: cloNIDine 0.1 MG TAB PO SCH (21:00)
[2021-07-03] MEDS ORDERED: BARICITINIB 2 MG TAB PO SCH (21:00)
[2021-07-03 21:49] VITALS: BP 130/69; TEMP 97.9
== END 2021-07-03 20:20 | DRG 871 ==
LOC: CSHERS 10:56 → CSHTELE 19:36 → CSHICU 06-26 13:01 → CSHTELE 06-30 11:50
PROVIDERS: ADMIT Hospitalist; ATTEND Family Medicine
PROC: XW033E5 Introduction of Remdesivir Anti-infective into Peripheral Vein, Percutaneous Approach, New Technology Group 5 (ICD-10-PCS; 2021-06-24)
PROC: 3E0333Z Introduction of Anti-inflammatory into Peripheral Vein, Percutaneous Approach (ICD-10-PCS; 2021-06-24)
PROC: 8E0ZXY6 Isolation (ICD-10-PCS; 2021-06-24)
PROC: 5A09457 Assistance with Respiratory Ventilation, 24-96 Consecutive Hours, Continuous Positive Airway Pressure (ICD-10-PCS; principal; 2021-06-26)
PROC: XW0DXM6 Introduction of Baricitinib into Mouth and Pharynx, External Approach, New Technology Group 6 (ICD-10-PCS; 2021-07-03)
DX: A41.89 Other specified sepsis (principal); U07.1 COVID-19; J12.82 Pneumonia due to coronavirus disease 2019; J96.01 Acute respiratory failure with hypoxia; I50.23 Acute on chronic systolic (congestive) heart failure; J98.11 Atelectasis; N17.9 Acute kidney failure, unspecified; E78.5 Hyperlipidemia, unspecified; T14.8XXA Other injury of unspecified body region, initial encounter; W19.XXXA Unspecified fall, initial encounter; I48.0 Paroxysmal atrial fibrillation; K76.0 Fatty (change of) liver, not elsewhere classified; I11.0 Hypertensive heart disease with heart failure; Z85.46 Personal history of malignant neoplasm of prostate; Z86.711 Personal history of pulmonary embolism; Z79.01 Long term (current) use of anticoagulants; Z79.51 Long term (current) use of inhaled steroids; Z79.899 Other long term (current) drug therapy; Z85.118 Personal history of other malignant neoplasm of bronchus and lung; Z87.891 Personal history of nicotine dependence; Z91.81 History of falling; Y92.9 Unspecified place or not applicable; Z88.0 Allergy status to penicillin; Z88.2 Allergy status to sulfonamides; Z90.49 Acquired absence of other specified parts of digestive tract; Z85.820 Personal history of malignant melanoma of skin; Z98.890 Other specified postprocedural states
CPT/HCPCS: 36415; 36416; 36600; 71045; 71275; 76705; 80048; 80053; 80076; 80202; 81001; 81003; 81015; 82248; 82728; 82805; 83605; 83735; 84100; 84145; 84484; 85025; 85379; 86140; 87040; 87081; 87086; 87449; 87804; 87899; 93005; 93010; 93306; 94660; 94760; 96365; 96367; C9113; J0248; J0360; J0456; J0692; J0696; J1100; J1650; J1940; J3370; J3490; J7050; J7120; U0002